=== PATIENT | female | born 1940 | race Caucasian/White ===

== ENCOUNTER 2019-11-28 10:57 | Emergency (ER) | payer MEDICARE ==
--- NOTE | 2019-11-28 11:34 | EDM.PDOC ---
ED HPI GENERAL MEDICAL PROBLEM - General Chief Complaint: Lower Extremity Injury/Pain Stated Complaint: FELL AND INJURED HIP Time Seen by Provider: 11/28/19 11:00 Source of Information: Reports: Patient History Limitations: Reports: No Limitations - History of Present Illness INITIAL COMMENTS - FREE TEXT/NARRATIVE: HISTORY AND PHYSICAL: History of present illness: Patient is a 79-year-old female who presents to the ED today with concern of left hip pain after a fall that occurred last night. Patient states she was outside and she slipped on a patch of ice and landed directly on her left hip and caught herself with her left hand. Patient states that she is only having left hip pain today and that she did not hit her head or lose consciousness with the fall. Patient states that she has not been able to walk since the fall and has had to have her family members help her get around the house. Patient denies any other symptoms or concerns. Patient denies fever, chills, chest pain, shortness of breath, or cough. Denies headache, neck stiff ness, change in vision, syncope, or near syncope. Denies nausea, vomiting, abdominal pain, diarrhea, constipation, or dysuria. Has not noted any blood in urine or stool. Patient has been eating and drinking appropriately. Review of systems: As per history of present illness and below otherwise all systems reviewed and negative. Past medical history: As per history of present illness and as reviewed below otherwise noncontributory. Surgical history: As per history of present illness and as reviewed below otherwise noncontributory. Social history: See social history for further information Family history: As per history of present illness and as reviewed below otherwise noncontributory. Physical exam: General: Patient is alert, oriented, and in no acute distress. Patient laying comfortably on exam table. HEENT: Atraumatic, normocephalic, pupils equal and reactive bilaterally, negative for conjunctival pallor or scleral icterus, mucous membranes moist, TMs normal bilaterally, throat clear, neck supple, nontender, trachea midline. No drooling or trismus noted. No meningeal signs. No hot potato voice noted. Lungs: Clear to auscultation, breath sounds equal bilaterally, chest nontender. Heart: S1S2, regular rate and rhythm without overt murmur Abdomen: Soft, nondistended, nontender. Negative for masses or hepatosplenomegaly. Negative for costovertebral tenderness. Pelvis: Stable nontender. Genitourinary: Deferred. Rectal: Deferred. Skin: Intact, warm, dry. No lesions or rashes noted. Extremities: Negative for cords or calf pain. Neurovascular unremarkable. Small bruising over the left greater trochanter. Patient does have limited range of motion of the left hip due to pain. No pain to palpation of the left hip. Patient does have full range of motion of the left knee ankle and digits. Dorsalis pedis and posterior tibial pulse grossly intact of the left lower extremity with capillary refill less than 2 seconds. Patient does have a superficial abrasion over her left plan without bleeding. Neuro: Awake, alert, oriented. Cranial nerves II through XII unremarkable. Cerebellum unremarkable. Motor and sensory unremarkable throughout. Exam nonfocal. Notes: Dr. Ramirez, orthopedic targeting acquisition officer for [facility], consulted on patient and accepting of transfer. EMS arranged. Voices understanding and is agreeable to plan of care. Denies any further questions or concerns at this time. Diagnostics: EKG, CBC, CMP, UA, CXR, Trop, Hip w pelvic XR, lumbar XR Therapeutics: Morphine, NS, Rocephin Impression: Subcapital fracture of left hip, displaced Urinary Tract infection Plan: Transfer to Dr. Ramirez, [facility], via EMS Definitive disposition and diagnosis as appropriate pending reevaluation and review of above. Left Hip Pain Score (Numeric/FACES): 8 - Related Data Allergies Allergy/AdvReac Type Severity Reaction Status Date / Time ciprofloxacin [From Cipro] Allergy Swelling Verified 11/28/19 11:19 Sulfa (Sulfonamide Allergy Swelling Verified 11/28/19 11:19 Antibiotics) Home Meds: Home Meds Aspirin [Ecotrin EC] 81 mg PO DAILY 11/28/19 [History] Calcium Carbonate [Calcium] 1,200 mg PO DAILY 11/28/19 [History] Cetirizine [ZyrTEC] 10 mg PO DAILY 11/28/19 [History] Cholecalciferol (Vitamin D3) [Vitamin D3] 1,000 unit PO DAILY 11/28/19 [History] Hydroxychloroquine [Plaquenil] 300 mg PO DAILY 11/28/19 [History] Levothyroxine [Synthroid] 100 mcg PO DAILY 11/28/19 [History] Metoprolol Succinate [Toprol XL] 12.5 mg PO DAILY 11/28/19 [History] Montelukast [Singulair] 10 mg PO DAILY 11/28/19 [History] Venlafaxine HCl [Venlafaxine ER] 150 mg PO DAILY 11/28/19 [History] atorvaSTATin [Lipitor] 20 mg PO DAILY 11/28/19 [History] Review of Systems - Review of Systems Review Of Systems: Comprehensive ROS is negative, except as noted in HPI. ED EXAM, GENERAL - Physical Exam Exam: See Below (see dictation) Course - Vital Signs Last Recorded V/S: Last Vital Signs Temp 98.7 F 11/28/19 13:09 Pulse 89 11/28/19 13:09 Resp 16 11/28/19 13:09 BP 156/68 H 11/28/19 13:09 Pulse Ox 94 L 11/28/19 13:09 - Orders/Labs/Meds Orders: Active Orders 24 hr Category Date Time Status EKG Documentation Completion [RC] STAT Care 11/28/19 11:29 Active CULTURE URINE [RM] Stat Lab 11/28/19 11:29 Received Sodium Chloride 0.9% [Normal Saline] 1,000 ml Med 11/28/19 12:48 Active IV STAT Medication Orders Sodium Chloride (Normal Saline) 1,000 mls @ 100 mls/hr IV STAT ONE Stop: 11/28/19 22:47 Last Admin: 11/28/19 13:10 Dose: 100 mls/hr Labs: Laboratory Tests 11/28/19 11/28/19 11/28/19 Range/Units 11:29 12:20 12:20 WBC 11.06 H (4.0-11.0) K/uL RBC 3.94 L (4.30-5.90) M/uL Hgb 12.1 (12.0-16.0) g/dL Hct 36.6 (36.0-46.0) % MCV 92.9 (80.0-98.0) fL MCH 30.7 (27.0-32.0) pg MCHC 33.1 (31.0-37.0) g/dL RDW Std Deviation 48.0 (28.0-62.0) fl RDW Coeff of Roseann 14 (11.0-15.0) % Plt Count 314 (150-400) K/uL MPV 8.90 (7.40-12.00) fL Neut % (Auto) 85.1 H (48.0-80.0) % Lymph % (Auto) 6.8 L (16.0-40.0) % [place] % (Auto) 7.4 (0.0-15.0) % Eos % (Auto) 0.4 (0.0-7.0) % Baso % (Auto) 0.3 (0.0-1.5) % Neut # (Auto) 9.4 H (1.4-5.7) K/uL Lymph # (Auto) 0.8 (0.6-2.4) K/uL [place] # (Auto) 0.8 (0.0-0.8) K/uL Eos # (Auto) 0.0 (0.0-0.7) K/uL Baso # (Auto) 0.0 (0.0-0.1) K/uL Nucleated RBC % 0.0 /100WBC Nucleated RBCs # 0 K/uL Sodium 134 L (136-145) mmol/L Potassium 4.2 (3.5-5.1) mmol/L Chloride 100 (98-107) mmol/L Carbon Dioxide 24.0 (21.0-32.0) mmol/L BUN 18 (7.0-18.0) mg/dL Creatinine 1.0 (0.6-1.0) mg/dL Est Cr Clr Drug Dosing 40.15 mL/min Estimated GFR (MDRD) 53.8 ml/min Glucose 115 H (74-106) mg/dL Calcium 8.7 (8.5-10.1) mg/dL Total Bilirubin 0.6 (0.2-1.0) mg/dL AST 27 (15-37) IU/L ALT 24 (14-63) IU/L Alkaline Phosphatase 94 (46-116) U/L Troponin I < 0.050 (0.000-0.056) ng/mL Total Protein 7.4 (6.4-8.2) g/dL Albumin 3.5 (3.4-5.0) g/dL Globulin 3.9 (2.6-4.0) g/dL Albumin/Globulin Ratio 0.9 (0.9-1.6) Urine Color DARK YELLOW Urine Appearance SLT CLOUDY Urine pH 5.5 (5.0-8.0) Ur Specific [place] >= 1.030 (1.001-1.035) Urine Protein NEGATIVE (NEGATIVE) mg/dL Urine Glucose (UA) NEGATIVE (NEGATIVE) mg/dL Urine Ketones TRACE H (NEGATIVE) mg/dL Urine Occult Blood MODERATE H (NEGATIVE) Urine Nitrite POSITIVE H (NEGATIVE) Urine Bilirubin NEGATIVE (NEGATIVE) Urine Urobilinogen 0.2 (<2.0) EU/dL Ur Leukocyte Esterase MODERATE H (NEGATIVE) Urine RBC 0-2 (0-2/HPF) Urine WBC 15-20 (0-5/HPF) Ur Epithelial Cells FEW (NONE-FEW) Urine Bacteria 4+ H (NEGATIVE) Meds: Medications Generic Name Dose Route Start Last Admin Trade Name Freq PRN Reason Stop Dose Admin Sodium Chloride 1,000 mls @ 100 mls/hr 11/28/19 12:48 11/28/19 13:10 Normal Saline IV 11/28/19 22:47 100 mls/hr STAT ONE Administration Discontinued Medications Generic Name Dose Route Start Last Admin Trade Name Freq PRN Reason Stop Dose Admin Ceftriaxone Sodium/Dextrose 1 50 mls @ 100 mls/hr 11/28/19 13:41 11/28/19 13: 50 gm/ Premix IV 11/28/19 14:10 100 mls/hr ONETIME ONE Administration Morphine Sulfate 2 mg 11/28/19 12:48 11/28/19 13:10 Morphine IVPUSH 11/28/19 12:49 2 mg ONETIME ONE Administration Departure - Departure Time of Disposition: 13:42 Disposition: DC/Tfer to [facility] 02 Clinical Impression: Subcapital fracture of hip Qualifiers: Encounter type: initial encounter Fracture type: closed Laterality: left Qualified Code(s): S72.012A - Unspecified intracapsular fracture of left femur, initial encounter for closed fracture Urinary tract infection Qualifiers: Urinary tract infection type: acute cystitis Hematuria presence: without hematuria Qualified Code(s): N30.00 - Acute cystitis without hematuria - Discharge Information Referrals: PCP,None [Primary Care Provider] - Forms: ED Department Discharge Sepsis Event Note - Focused Exam Vital Signs: Vital Signs Temp Pulse Resp BP Pulse Ox 11/28/19 13:09 98.7 F 89 16 156/68 H 94 L 11/28/19 11:48 98.4 F 85 17 150/74 H 91 L Date Exam was Performed: 11/28/19 Time Exam was Performed: 14:46 - My Orders Last 24 Hours: My Active Orders 11/28/19 11:29 EKG Documentation Completion [RC] STAT CULTURE URINE [RM] Stat 11/28/19 12:48 Sodium Chloride 0.9% [Normal Saline] 1,000 ml IV STAT - Assessment/Plan Last 24 Hours: My Active Orders 11/28/19 11:29 EKG Documentation Completion [RC] STAT CULTURE URINE [RM] Stat 11/28/19 12:48 Sodium Chloride 0.9% [Normal Saline] 1,000 ml IV STAT
--- NOTE | 2019-11-28 12:31 | CR ---
Pelvis and left hip: AP view of pelvis is obtained as well as AP and slight frog leg lateral view left hip were obtained. Displaced subcapital fracture is noted within the left hip. Joint spaces within both hips are preserved. Osteopenia is seen. No additional fracture or other bony abnormality is appreciated. Impression: 1. Displaced subcapital fracture within the left hip. 2. No additional fracture is appreciated. Diagnostic code #3 This report was dictated in [place] Standard Time
--- NOTE | 2019-11-28 12:31 | CR ---
Lumbar spine: AP, lateral and cone-down lateral views centered to the lumbosacral junction were obtained. Mild spondylolisthesis is noted at L2-3 and L3-4. Vertebral body heights and disc spaces are fairly well-preserved. Mild scattered endplate osteophytes are seen. Pedicles are intact. Visualized transverse and spinous processes are intact. No discrete fracture is seen. Impression: 1. Degenerative change as noted above. 2. Nothing acute is appreciated on 3 view lumbar spine study. Diagnostic code #2 This report was dictated in [place] Standard Time
--- NOTE | 2019-11-28 12:31 | CR ---
Chest: AP view of the chest was obtained. Comparison: No prior chest x-ray. Heart size appears within normal limits for AP technique. Tortuous thoracic aorta is seen. Area of atelectasis or scarring is seen within the right base. Lungs otherwise are clear. Bony structures are osteopenic and grossly intact. Impression: 1. Nothing acute is seen on AP chest x-ray. Diagnostic code #2 This report was dictated in [place] Standard Time
[2019-11-28] MEDS ORDERED: Sodium Chloride 0.9% 1,000 ML IV ONE (12:48)
[2019-11-28] MEDS ORDERED: Morphine 2 MG/ML Syringe IVPUSH ONE (12:48)
[2019-11-28 12:50] LABS: BLOOD UREA NITROGEN,BUN 18 mg/dL (7.0-18.0); CHLORIDE,CL 100 mmol/L (98-107); GLUCOSE RANDOM 115 mg/dL (74-106); POTASSIUM,K 4.2 mmol/L (3.5-5.1); SODIUM,NA 134 mmol/L (136-145)
[2019-11-28] MEDS ORDERED: cefTRIAXone 1 GM in Premix Bag 1 BAG IV ONE (13:41)
== END 2019-11-28 14:35 ==
LOC: MW.ED 10:57
DX: S72.012A Unspecified intracapsular fracture of left femur, initial encounter for closed fracture (principal); N30.00 Acute cystitis without hematuria; Z88.1 Allergy status to other antibiotic agents; Z88.2 Allergy status to sulfonamides; Z79.899 Other long term (current) drug therapy; W01.0XXA Fall on same level from slipping, tripping and stumbling without subsequent striking against object, initial encounter
CPT/HCPCS: 36415; 71045; 72100; 73502; 80053; 81001; 84484; 85025; 87086; 87088; 87186; 93005; 96361; 96365; 96375; 99285; J0696; J2270; J7030; 99284